=== PATIENT | female | born 1970 | race Caucasian/White ===

== ENCOUNTER 2017-04-09 04:45 | Emergency (ER) | payer BC ==
[2017-04-09] MEDS ORDERED: Ondansetron HCl/PF 4 MG/2 ML Vial ONE ×2 (04:48→06:29)
[2017-04-09] MEDS ORDERED: Morphine 4 MG/ML VIAL ONE ×2 (05:03→06:29)
[2017-04-09] MEDS ORDERED: Promethazine HCl 25 MG/ML VIAL ONE (05:15)
[2017-04-09 05:36] LABS: ALT (SGPT) 12 U/L (8-55); AST (SGOT) 32 U/L (5-34); Alkaline Phosphatase 44 U/L (40-150); Anion Gap 15 mmol/L (10-20); BUN (Urea Nitrogen) 12 mg/dL (7.0-18.7); Bilirubin, Total 1.4 mg/dL (0.2-1.2); Calc. Creatinine Clearance 0 mL/min (70-130); Calcium 9.1 mg/dL (7.8-10.44); Carbon Dioxide 17 mmol/L (22-29); Chloride 105 mmol/L (98-107); Estimated GFR-MDRD 78; Globulin 3.1 g/dL (2.4-3.5); Protein, Total 7.2 g/dL (6.0-8.3)
[2017-04-09 05:38] LABS: #Lymphocytes 0.4 thou/uL (1.20-3.40); #Monocytes 0.1 thou/uL (0.11-0.59); #Neutrophils 3.4 thou/uL (1.40-6.50); %Basophils 0.1 % (0.0-1.0); %Eosinophils 0.8 % (0.0-10.0); %Lymphocytes 9.6 % (21.0-51.0); %Monocytes 2.9 % (0.0-10.0); Hypochromia SLIGHT = 6-15 cells (100X) (0-5/hpf); Mean Platelet Volume 5.9 fL (7.4-10.4); Microcytosis SLIGHT = 6-15 cells (100X) (0-5/hpf); Ovalocytes SLIGHT = 2-5 cells (100X) (0-1/hpf); Red Blood Cell (RBC) Count 5.76 mill/uL (4.20-5.40); White Blood Cell (WBC) Count 3.9 thou/uL (4.8-10.8)
[2017-04-09] MEDS ORDERED: Lidocaine Viscous Sol 2% 15 ml UD Cup ONE (06:30)
[2017-04-09] MEDS ORDERED: Mag-Al 1200 mg/1200 mg/30 ML UDCUP ONE (06:30)
== END 2017-04-09 07:34 | disposition home or self-care (01) ==
LOC: ERS 04:45
DX: K29.70 Gastritis, unspecified, without bleeding (principal); F17.210 Nicotine dependence, cigarettes, uncomplicated; Z79.899 Other long term (current) drug therapy
CPT/HCPCS: 80053; 85025; 93005; 96361; 96374; 96375; 96376; 99406; J2270; J2405; J2550

== ENCOUNTER 2018-09-05 18:15 | Emergency (ER) | payer BC ==
[~2018-09-05 18:15] MED LIST: ISOVUE-370 76%-LOCM 1 ML ONE; Iopamidol 370 76% 50 ML VIAL FS ONE
[2018-09-05] MEDS ORDERED: Ondansetron PF 4 MG/2 ML Vial ONE (18:49)
[2018-09-05] MEDS ORDERED: Morphine 4 MG/ML VIAL ONE ×2 (18:49→20:45)
[2018-09-05] MEDS ORDERED: Pantoprazole 40 MG VIAL ONE (18:49)
[2018-09-05 19:03] LABS: Hemoglobin 10.3 g/dL (12.0-16.0); Mean Corpuscular HGB CONC 29.5 g/dL (32.0-36.0); Mean Corpuscular Hemoglobin 20.6 pg (27.0-31.0); Mean Corpuscular Volume 69.9 fL (78.0-98.0); Mean Platelet Volume 10.6 fL (7.4-10.4); Platelet Count 327 thou/uL (130-400); RBC Distribution Width 19.1 % (11.5-14.5); Red Blood Cell (RBC) Count 4.98 mill/uL (4.20-5.40); White Blood Cell (WBC) Count 4.3 thou/uL (4.8-10.8)
[2018-09-05 19:22] LABS: #Eosinphils 0.1 thou/uL (0.0-0.7); #Lymphocytes 1.1 thou/uL (1.20-3.40); #Monocytes 0.6 thou/uL (0.11-0.59); #Neutrophils 2.6 thou/uL (1.40-6.50); %Basophils 0.8 % (0.0-1.0); %Eosinophils 1.5 % (0.0-10.0); %Lymphocytes 25.4 % (21.0-51.0); %Monocytes 12.7 % (0.0-10.0); %Neutrophils 59.7 % (42.0-75.0); ALT (SGPT) 26 U/L (8-55); AST (SGOT) 120 U/L (5-34); Alkaline Phosphatase 105 U/L (40-150); Anion Gap 17 mmol/L (10-20); BUN (Urea Nitrogen) 7 mg/dL (7.0-18.7); Bilirubin, Total 0.6 mg/dL (0.2-1.2); Calc. Creatinine Clearance 0 mL/min (70-130); Calcium 9.4 mg/dL (7.8-10.44); Carbon Dioxide 20 mmol/L (22-29); Chloride 103 mmol/L (98-107); Elliptocytes SLIGHT = 2-5 cells (100X) (0-1/hpf); Estimated GFR-MDRD 86; Glucose 74 mg/dL (70-105); Hypochromia SLIGHT = 6-15 cells (100X) (0-5/hpf); Lipase 174 U/L (8-78); MDiff Complete? YES; Microcytosis SLIGHT = 6-15 cells (100X) (0-5/hpf); Platelet Morphology Comment Appears Adequate; Potassium 3.7 mmol/L (3.5-5.1); Sodium 136 mmol/L (136-145)
[2018-09-05 19:58] LABS: Bilirubin Negative (Negative); Blood, Urine Negative (Negative); Clarity CLEAR (Clear); Glucose, Urine (Dipstick) Negative (Negative); Leukocyte Negative (Negative); Nitrite Negative (Negative); Protein, Urine (Dipstick) Negative (Neg-Trace); Urobilinogen 0.2 mg/dL (0.2-1.0)
[2018-09-05 20:03] LABS: Specific Gravity, Urine 1.003 (1.002-1.036)
--- NOTE | 2018-09-05 21:03 | CT ---
CT abdomen and pelvis with IV and oral contrast HISTORY: Abdominal pain. Nausea and vomiting. FINDINGS: Lung bases are clear. Bariatric surgery evident at the stomach with retention of oral contr ast in the distal esophagus. Gallbladder surgically absent. Solid organs are unremarkable. No enlarged lymph nodes or free fluid. Appendix not well visualized. No evidence of inflammation. Urinar y bladder is unremarkable. IMPRESSION: Postoperative changes. No significant abnormalities are demonstrated. No evidence of chinedu l obstruction.
[2018-09-05] MEDS ORDERED: Ketorolac Tromethamine 30 MG/ML VIAL ONE (21:42)
== END 2018-09-05 22:25 | disposition home or self-care (01) ==
LOC: ERS 18:15
DX: K85.90 Acute pancreatitis without necrosis or infection, unspecified (principal); Z71.6 Tobacco abuse counseling; F17.210 Nicotine dependence, cigarettes, uncomplicated; F31.9 Bipolar disorder, unspecified; Z79.899 Other long term (current) drug therapy
CPT/HCPCS: 74177; 80053; 81003; 83690; 85025; 96361; 96374; 96375; 96376; 99406; C9113; J1885; J2270; J2405

== ENCOUNTER 2019-01-20 09:54 | Outpatient (CLI) | payer BC ==
--- NOTE | 2019-01-20 11:03 | MMO ---
Bilateral MAMMO Bilat Screen [facility]. CLINICAL HISTORY: Patient is 48 years old and is seen for screening. The patient has no family history of breast cancer. The patient has no personal history of cancer. VIEWS: The views performed were: bilateral craniocaudal with tomosynthesis and bilateral mediolateral oblique with tomosynthesis. FILMS COMPARED: The present examination has been compared to a prior imaging study performed at [facility] on 05/29/2015. MAMMOGRAM FINDINGS: There are scattered fibroglandular densities. There are stable benign appearing calcifications seen in both breasts. There are no suspicious masses, suspicious calcifications, or new areas of architectural distortion. IMPRESSION: THERE IS NO MAMMOGRAPHIC EVIDENCE OF MALIGNANCY. A ROUTINE FOLLOW-UP MAMMOGRAM IN 1 YEAR IS RECOMMENDED. THE RESULTS OF THIS EXAM WERE SENT TO THE PATIENT. ACR BI-RADS Category 2 - Benign finding MAMMOGRAPHY NOTE: 1. A negative mammogram report should not delay a biopsy if a dominant of clinically suspicious mass is present. 2. Approximately 10% to 15% of breast cancers are not detected by mammography. 3. Adenosis and dense breasts may obscure an underlying neoplasm. Reported by: ELENA SUNG MD Electonically Signed: [id number]
== END 2019-01-20 09:55 | disposition home or self-care (01) ==
LOC: BICMAMMO 09:54
PROVIDERS: ATTEND Internal Medicine
DX: Z12.31 Encounter for screening mammogram for malignant neoplasm of breast (principal)
CPT/HCPCS: 77063; 77067

== ENCOUNTER 2021-09-05 10:09 | Outpatient (CLI) | payer OTHER | END 2021-09-05 10:10 | disposition home or self-care (01) | LOC: BICMAMMO 10:09 | PROVIDERS: ATTEND Internal Medicine | DX: Z12.31 Encounter for screening mammogram for malignant neoplasm of breast (principal) | CPT/HCPCS: 77063; 77067 ==

== ENCOUNTER 2021-12-26 07:42 | Inpatient (IN) | payer BC, SELFPAY ==
[~2021-12-26 07:42] MED LIST changes: -ISOVUE-370 76%-LOCM 1 ML ONE; -Iopamidol 370 76% 50 ML VIAL FS ONE; +Lorazepam 1 MG TAB PO PRN
[2021-12-26 08:17] LABS: Actual Bicarbonate (HCO3v) 17 mEq/L (22-28); Base Excess -4.4 mEq/L (-2.0 to +3.0); Calcium, Ionized (venous) 0.98 mmol/L (1.16-1.32); Chloride (VBG) 97 mmol/L (98-106); Hemoglobin (Hb) 14.7 g/dL (11.7-16.0); Potassium (VBG) 3.47 mmol/L (3.70-5.30); Sodium 127.8 mmol/L (133-146); pH (venous) 7.47 (7.32-7.43)
[2021-12-26] MEDS ORDERED: Lorazepam (BATCHED) 2 MG/ML SYR ONE (08:24)
[2021-12-26 08:34] LABS: BHCG - Serum Negative (NEGATIVE); Pregs Control Background? CLEAR/WHITE (CLR/WHITE); Pregs Control Bar Appear? YES (CONTROL BAR)
[2021-12-26 08:43] LABS: ALT (SGPT) 764 U/L (8-55); AST (SGOT) 2949 U/L (5-34); Albumin 2.8 g/dL (3.5-5.0); Alkaline Phosphatase 142 U/L (40-110); Anion Gap 22 mmol/L (10-20); BUN (Urea Nitrogen) 5 mg/dL (7.0-18.7); Calc. Creatinine Clearance 0 mL/min (70-130); Calcium 8.4 mg/dL (7.8-10.44); Carbon Dioxide 18 mmol/L (22-29); Chloride 95 mmol/L (98-107); Estimated GFR 66; Globulin 3.5 g/dL (2.4-3.5); Glucose 75 mg/dL (70-105); Potassium 3.5 mmol/L (3.5-5.1); Protein, Total 6.3 g/dL (6.0-8.3); Sodium 131 mmol/L (136-145)
[2021-12-26] MEDS ORDERED: Thiamine HCl 200 MG/2 ML VIAL SLOW IVP SCH (08:45)
[2021-12-26 08:53] LABS: Band 20 % (5-11); Hemoglobin 14.5 g/dL (12.0-16.0); Lymphocytes 8 % (21-51); MDiff Complete? YES; Macrocytosis SLIGHT = 6-15 cells (100X) (0-5/hpf); Mean Corpuscular Hemoglobin 35.5 pg (27.0-31.0); Mean Platelet Volume 8.2 fL (7.4-10.4); Monocytes 16 % (0-10); Neutrophil 55 % (42-75); Platelet Count 91 thou/uL (130-400); Platelet Morphology Comment Appears Decreased; Polychromasia SLIGHT = 2-3 cells (100X) (0-2/hpf); RBC Distribution Width 12.2 % (11.5-14.5); Reactive Lymphocytes 1 % (0-10); Red Blood Cell (RBC) Count 4.08 mill/uL (4.20-5.40)
[2021-12-26] MEDS ORDERED: Cefepime 2 GM VIAL ONE (08:58)
[2021-12-26] MEDS ORDERED: Vancomycin 1.5 GRAM/300 ML BAG 1.5 GM in Premix Bag 1 BAG IVPB SCH (09:00)
[2021-12-26] MEDS ORDERED: Cefepime 2 GM in Sodium Chloride 0.9% 100 ML IVPB SCH (09:00)
[2021-12-26] MEDS ORDERED: Sodium Chloride 0.9% 1,000 ML IV SCH (09:15)
[2021-12-26 10:24] LABS: PTT 45.3 sec (22.9-36.1); Prothrombin Time 22.9 sec (12.0-14.7)
[2021-12-26 10:32] LABS: Acetaminophen Less than 10.0 mcg/mL (10.0-30.0); Alcohol Less than 10 mg/dL (Less than 10); CK (CPK) 24 U/L (29-168); Magnesium 1.9 mg/dL (1.6-2.6); Salicylate Less than 8.0 mg/dL (15.0-30.0)
[2021-12-26 10:34] LABS: Bacteria/HPF 2+ HPF (None Seen); Bilirubin 1+ (Negative); Blood, Urine Negative (Negative); Clarity Turbid (Clear); Glucose, Urine (Dipstick) Normal (Negative); Ketone, Urine Negative (Negative); Leukocyte 500 Leu/uL (Negative); Nitrite Negative (Negative); Protein, Urine (Dipstick) 10 mg/dL (Neg-Trace); RBC/HPF 0-3 HPF (0-3); Specific Gravity, Urine 1.029 (1.002-1.036); WBC/HPF 21-50 HPF (0-3); pH, Urine 5.5 (5.0-9.0)
[2021-12-26 10:41] LABS: Yeast-Budding 1+ HPF (None Seen)
[2021-12-26] MEDS ORDERED: Iopamidol-370 76% 500 ML 1 ML ONE (11:19)
[2021-12-26 11:39] LABS: Troponin I Less than 0.010 ng/mL (< 0.028)
[2021-12-26] MEDS ORDERED: Lorazepam 1 MG TAB PO PRN (11:39)
[2021-12-26] MEDS ORDERED: Ondansetron ODT 4 MG TAB PO PRN (11:39)
[2021-12-26] MEDS ORDERED: Lorazepam 2 MG/ML VIAL IM PRN ×2 (11:39→13:30)
[2021-12-26] MEDS ORDERED: Electrolyte Replacement Protocol 1 EACH FS SCH (11:45)
[2021-12-26] MEDS ORDERED: Lorazepam 1 MG TAB PO SCH (11:45)
[2021-12-26 11:56] LABS: Lactic Acid 5.3 mmol/L (0.5-2.2)
[2021-12-26 12:13] LABS: SARS-CoV-2 NAA Rapid Test Not Detected (NotDetected)
[2021-12-26] MEDS ORDERED: Vancomycin 1 GM in Premix Bag 1 BAG IVPB SCH (12:45)
[2021-12-26 13:19] VITALS: BMI 29.3
[2021-12-26] MEDS ORDERED: Electrolyte Replacement Protocol 1 EACH FS PRN (13:30)
[2021-12-26] MEDS ORDERED: Phytonadione 10 MG/ML AMP SC SCH (13:30)
[2021-12-26] MEDS ORDERED: Phytonadione 5 MG TAB PO ONE (13:30)
[2021-12-26] MEDS: Lorazepam 1 MG TAB PO SCH ×4 (13:52→23:08)
[2021-12-26] MEDS ORDERED: Cefepime 1 GM VIAL ONE ×2 (14:50→20:57)
[2021-12-26] MEDS ORDERED: Potassium Chloride 20 MEQ/100 ML PREMIX BAG ONE (14:51)
[2021-12-26] MEDS: Thiamine HCl 200 MG/2 ML VIAL SLOW IVP SCH (15:12)
[2021-12-26] MEDS: Potassium Chloride 20 MEQ in Premix Bag 1 BAG IVPB SCH ×2 (15:27→18:12)
[2021-12-26] MEDS: Cefepime 1 GM in Sodium Chloride 0.9% 100 ML IVPB SCH ×2 (15:27→21:01)
[2021-12-26] MEDS ORDERED: Magnesium 2 GM/50 ML(in water) 2 GM in Premix Bag 1 BAG IVPB SCH (16:00)
[2021-12-26] MEDS ORDERED: Acetaminophen 325 MG TAB PO PRN (16:40)
[2021-12-26] MEDS ORDERED: Acetaminophen 500 MG TAB PO PRN (16:58)
[2021-12-26] MEDS ORDERED: Magnesium 2 GM/50 ML BAG (IN WATER) ONE (17:05)
[2021-12-26] MEDS: Vancomycin 1.5 GRAM/300 ML BAG 1.5 GM in Premix Bag 1 BAG IVPB SCH (22:37)
[2021-12-27] MEDS: Lorazepam 1 MG TAB PO SCH ×4 (05:10→23:20)
[2021-12-27] MEDS: Cefepime 1 GM in Sodium Chloride 0.9% 100 ML IVPB SCH ×3 (05:10→23:14)
[2021-12-27 07:42] LABS: INR-International Normal Ratio 1.6; Prothrombin Time 19.4 sec (12.0-14.7)
[2021-12-27 07:52] LABS: Band 5 % (5-11); Hemoglobin 13.3 g/dL (12.0-16.0); Lymphocytes 5 % (21-51); MDiff Complete? YES; Macrocytosis SLIGHT = 6-15 cells (100X) (0-5/hpf); Mean Corpuscular HGB CONC 32.5 g/dL (32.0-36.0); Mean Corpuscular Hemoglobin 35.2 pg (27.0-31.0); Mean Platelet Volume 8.7 fL (7.4-10.4); Monocytes 18 % (0-10); Neutrophil 70 % (42-75); Platelet Count 96 thou/uL (130-400); Platelet Morphology Comment Appears Decreased; Polychromasia SLIGHT = 2-3 cells (100X) (0-2/hpf); RBC Distribution Width 12.5 % (11.5-14.5); Red Blood Cell (RBC) Count 3.77 mill/uL (4.20-5.40); White Blood Cell (WBC) Count 4.3 thou/uL (4.8-10.8)
[2021-12-27 08:04] LABS: ALT (SGPT) 554 U/L (8-55); AST (SGOT) 1466 U/L (5-34); Albumin 2.5 g/dL (3.5-5.0); Alkaline Phosphatase 120 U/L (40-110); Anion Gap 17 mmol/L (10-20); BUN (Urea Nitrogen) 5 mg/dL (7.0-18.7); Bilirubin, Direct 2.2 mg/dL (0.1-0.3); Bilirubin, Total 4.2 mg/dL (0.2-1.2); Calc. Creatinine Clearance 125 mL/min (70-130); Calcium 7.9 mg/dL (7.8-10.44); Carbon Dioxide 15 mmol/L (22-29); Chloride 108 mmol/L (98-107); Estimated GFR 101; Globulin 3.6 g/dL (2.4-3.5); Glucose 115 mg/dL (70-105); Magnesium 2.5 mg/dL (1.6-2.6); Phosphorus 1.4 mg/dL (2.3-4.7); Protein, Total 6.1 g/dL (6.0-8.3); Sodium 136 mmol/L (136-145)
[2021-12-27 08:15] LABS: HBCM Index 0.07 S/CO (0-0.79); Hep A IgM AB Non-Reactive (NonReactive); Hep A IgM S/CO 0.15 S/CO (0-0.79); Hep B Surf Ag Non-Reactive S/CO (NonReactive); Hep C IgG Ab Non-Reactive (NonReactive); Hep C Index 0.11 S/CO (0-0.79); Hepatitis B Core IgM Abs Non-Reactive (NonReactive)
[2021-12-27] MEDS: Folic Acid 1 MG TAB PO SCH (08:18)
[2021-12-27] MEDS: Multivit, Therapeutic 1 TAB PO SCH (08:18)
[2021-12-27] MEDS: PHOS-NAK 1 PKT PACK PO SCH ×4 (08:22→20:49)
[2021-12-27] MEDS ORDERED: Folic Acid 1 MG TAB PO SCH (09:00)
[2021-12-27] MEDS ORDERED: prednisoLONE 10 MG ODT TAB PO SCH (09:00)
[2021-12-27] MEDS: Vancomycin 1.5 GRAM/300 ML BAG 1.5 GM in Premix Bag 1 BAG IVPB SCH (09:08)
[2021-12-27] MEDS ORDERED: Lorazepam 1 MG TAB PO PRN ×2 (11:39→13:30)
[2021-12-27] MEDS: Thiamine HCl 200 MG/2 ML VIAL SLOW IVP SCH (11:59)
[2021-12-27] MEDS ORDERED: Cefepime 1 GM VIAL ONE (13:08)
[2021-12-27] MEDS ORDERED: Diazepam 10 MG/2 ML SYRINGE IVP SCH (20:45)
[2021-12-28] MEDS ORDERED: Lorazepam 0.5 MG TAB PO SCH ×2 (06:00→11:45)
[2021-12-28 06:05] LABS: Band 5 % (5-11); Hemoglobin 11.7 g/dL (12.0-16.0); Hypochromia SLIGHT = 6-15 cells (100X) (0-5/hpf); Lymphocytes 8 % (21-51); MDiff Complete? YES; Macrocytosis SLIGHT = 6-15 cells (100X) (0-5/hpf); Mean Corpuscular HGB CONC 32.5 g/dL (32.0-36.0); Mean Corpuscular Hemoglobin 35.2 pg (27.0-31.0); Mean Platelet Volume 7.9 fL (7.4-10.4); Monocytes 11 % (0-10); Neutrophil 76 % (42-75); Platelet Count 96 thou/uL (130-400); Platelet Morphology Comment Appears Decreased; RBC Distribution Width 12.3 % (11.5-14.5); Red Blood Cell (RBC) Count 3.31 mill/uL (4.20-5.40); White Blood Cell (WBC) Count 3.2 thou/uL (4.8-10.8)
[2021-12-28 06:13] LABS: ALT (SGPT) 375 U/L (8-55); AST (SGOT) 582 U/L (5-34); Albumin 2.3 g/dL (3.5-5.0); Alkaline Phosphatase 114 U/L (40-110); Anion Gap 11 mmol/L (10-20); BUN (Urea Nitrogen) 8 mg/dL (7.0-18.7); Bilirubin, Total 3.1 mg/dL (0.2-1.2); Calc. Creatinine Clearance 147 mL/min (70-130); Calcium 7.9 mg/dL (7.8-10.44); Carbon Dioxide 26 mmol/L (22-29); Chloride 108 mmol/L (98-107); Estimated GFR 109; Globulin 3.1 g/dL (2.4-3.5); Glucose 123 mg/dL (70-105); Iron 22 ug/dL (50-170); Iron Binding Capacity, Total 185 mcg/dL (265-497); Protein, Total 5.4 g/dL (6.0-8.3); Sodium 142 mmol/L (136-145)
[2021-12-28] MEDS: Cefepime 1 GM in Sodium Chloride 0.9% 100 ML IVPB SCH (06:13)
[2021-12-28] MEDS ORDERED: Potassium Chloride 20 MEQ TAB PO SCH (08:00)
[2021-12-28] MEDS: Folic Acid 1 MG TAB PO SCH (08:36)
[2021-12-28] MEDS: Multivit, Therapeutic 1 TAB PO SCH (08:37)
[2021-12-28 09:38] LABS: EBV VCA IgM <36.0 U/mL (0.0-35.9); Nuclear AG IgG (EBNA) AB >600.0 U/mL (0.0-17.9)
[2021-12-28 10:13] LABS: Lactic Acid 1.1 mmol/L (0.5-2.2)
[2021-12-28] MEDS ORDERED: Lorazepam 1 MG TAB PO PRN ×2 (11:39→13:30)
[2021-12-28] MEDS ORDERED: Diazepam 2 MG TAB PO PRN (11:56)
[2021-12-28] MEDS: Thiamine HCl 200 MG/2 ML VIAL SLOW IVP SCH (12:26)
[2021-12-28] MEDS ORDERED: Ibuprofen 200 MG TAB PO PRN (14:45)
[2021-12-28] MEDS ORDERED: hydrOXYzine 25 MG TAB PO PRN (17:44)
[2021-12-29] MEDS ORDERED: Lorazepam 0.5 MG TAB PO PRN ×2 (06:00→11:39)
[2021-12-29 06:50] LABS: ALT (SGPT) 258 U/L (8-55); AST (SGOT) 276 U/L (5-34); Albumin 2.2 g/dL (3.5-5.0); Alkaline Phosphatase 121 U/L (40-110); Anion Gap 11 mmol/L (10-20); BUN (Urea Nitrogen) 8 mg/dL (7.0-18.7); Bilirubin, Total 2.7 mg/dL (0.2-1.2); Calc. Creatinine Clearance 144 mL/min (70-130); Calcium 7.9 mg/dL (7.8-10.44); Carbon Dioxide 23 mmol/L (22-29); Chloride 108 mmol/L (98-107); Estimated GFR 107; Glucose 85 mg/dL (70-105); Potassium 3.1 mmol/L (3.5-5.1); Protein, Total 5.2 g/dL (6.0-8.3); Sodium 139 mmol/L (136-145)
[2021-12-29 08:59] LABS: Band 1 % (5-11); Eosinophils 6 % (0-10); Hemoglobin 12.4 g/dL (12.0-16.0); Lymphocytes 17 % (21-51); MDiff Complete? YES; Mean Corpuscular HGB CONC 33.8 g/dL (32.0-36.0); Mean Corpuscular Hemoglobin 36.5 pg (27.0-31.0); Mean Platelet Volume 7.6 fL (7.4-10.4); Monocytes 17 % (0-10); Neutrophil 55 % (42-75); Platelet Count 114 thou/uL (130-400); Platelet Morphology Comment Appears Decreased; RBC Distribution Width 12.4 % (11.5-14.5); RBC Morphology Normal; Reactive Lymphocytes 4 % (0-10); Red Blood Cell (RBC) Count 3.41 mill/uL (4.20-5.40); White Blood Cell (WBC) Count 3.5 thou/uL (4.8-10.8)
[2021-12-29] MEDS ORDERED: Potassium Chloride 20 MEQ TAB PO SCH (09:30)
[2021-12-29] MEDS: Multivit, Therapeutic 1 TAB PO SCH (09:56)
[2021-12-29] MEDS: Folic Acid 1 MG TAB PO SCH (09:56)
[2021-12-29] MEDS ORDERED: Thiamine 100 MG TAB PO SCH (11:45)
[2021-12-29 17:05] VITALS: TEMP 97.8
[2021-12-29 17:22] VITALS: BP 149/87
[2021-12-31 13:37] LABS: ANA Symphony (Qualitative) Negative (Negative); ANA Symphony (Quantitative) 0.4 Ratio (< 0.7 Negative); EliA Vaculitis New Method **** NEW METHOD ****; Mitochondrial Ab 0.8 U/mL (<4 Negative); dsDNA IgG Antibody 2.1 IU/mL (<10 Negative)
== END 2021-12-29 17:33 | disposition home or self-care (01) | DRG 432 ==
LOC: ERS 07:42 → CCU 11:48 → T4-A 15:06
PROVIDERS: ADMIT Hospitalist; ATTEND Hospitalist
DX: K70.10 Alcoholic hepatitis without ascites (principal); A41.51 Sepsis due to Escherichia coli [E. coli]; E87.2 Acidosis; F10.239 Alcohol dependence with withdrawal, unspecified; N39.0 Urinary tract infection, site not specified; E87.1 Hypo-osmolality and hyponatremia; Z20.822 Contact with and (suspected) exposure to COVID-19; F31.9 Bipolar disorder, unspecified; I10 Essential (primary) hypertension; E87.6 Hypokalemia; D64.9 Anemia, unspecified; Z79.899 Other long term (current) drug therapy; Z90.49 Acquired absence of other specified parts of digestive tract; Z90.710 Acquired absence of both cervix and uterus
CPT/HCPCS: 36415; 71045; 74177; 76705; 80053; 80074; 80307; 81003; 81015; 82103; 82248; 82390; 82550; 82728; 82805; 83516; 83540; 83550; 83605; 83735; 84100; 84484; 84703; 85025; 85610; 85730; 86015; 86038; 86225; 86664; 86665; 87040; 87077; 87086; 87149; 87186; 93005; 96361; 96365; 96367; 96375; J0692; J2060; J3360; J3370; J3411; J3430; J3475; J3480; J3490; J7510; Q9967